=== PATIENT | male | born 1930 | race Caucasian/White ===

== ENCOUNTER 2016-09-10 06:59 | Inpatient (IN) | payer MEDICARE, OTHER ==
[~2016-09-10] VITALS: Ht 195.6 cm; Wt 106.2 kg
[2016-09-10] MEDS ORDERED: SODIUM CHLORIDE 0.9% 1,000 ML IV ONE (07:25)
[2016-09-10 07:29] VITALS: BP 121/74
[2016-09-10] MEDS ORDERED: CELE200C PO (07:43)
[2016-09-10] MEDS ORDERED: ISOS30TA8 PO (07:43)
[2016-09-10] MEDS ORDERED: LOSA25TA5 PO (07:43)
[2016-09-10] MEDS ORDERED: HYDR12.58 PO (07:43)
[2016-09-10] MEDS ORDERED: METO25TA35 PO (07:43)
[2016-09-10] MEDS ORDERED: LEVO88TA4 PO (07:43)
[2016-09-10] MEDS ORDERED: INDO25CA PO (07:43)
[2016-09-10 08:02] LABS: ASPARTATE AMINO TRANSFERASE 21 U/L (15-37); BLOOD UREA NITROGEN 35 mg/dL (7-18)
[2016-09-10] MEDS ORDERED: FENTANYL PF 100 MCG/2ML ONE ×2 (09:01→16:08)
[2016-09-10] MEDS ORDERED: BIVALIRUDIN 250 MG ONE ×2 (09:01→16:08)
[2016-09-10] MEDS ORDERED: TICAGRELOR 90 MG TABLET ONE ×2 (09:01→16:09)
[2016-09-10] MEDS ORDERED: LIDOCAINE 2%, 20ML ONE ×2 (09:01→16:08)
[2016-09-10] MEDS ORDERED: MIDAZOLAM 1 MG/ML, 5ML ONE ×2 (09:01→16:08)
[2016-09-10] MEDS ORDERED: HEPARIN 1,000 UNITS/ML, 10ML ONE ×2 (09:01→16:38)
[2016-09-10] MEDS ORDERED: VERAPAMIL 2.5 MG/ML, 2ML ONE ×2 (09:01→16:08)
[2016-09-10] MEDS: SODIUM CHLORIDE 0.9% 1,000 ML IV SCH ×2 (10:32→21:18)
[2016-09-10] MEDS ORDERED: HEPARIN 25,000 UNITS in DEXTROSE 10% 500 ML IV PRN (18:33)
[2016-09-10] MEDS ORDERED: HEPARIN 25,000 UNITS in DEXTROSE 20% 500 ML IV PRN (18:33)
[2016-09-10] MEDS ORDERED: SODIUM CHLORIDE 0.45% IV PRN (18:33)
[2016-09-10] MEDS ORDERED: DEXTROSE 30% IV PRN (18:33)
[2016-09-10] MEDS ORDERED: HEPARIN IV PRN ×4 (18:33→19:38)
[2016-09-10] MEDS ORDERED: SODIUM CHLORIDE 0.9% 500 ML IV PRN (18:33)
[2016-09-10 19:31] LABS: BLOOD UREA NITROGEN 29 mg/dL (7-18)
[2016-09-10] MEDS ORDERED: DEXTROSE 20% IV PRN ×2 (19:35→19:38)
[2016-09-10 19:39] LABS: IS PT STATUS REG ER OR PRE ER? NO
[2016-09-10] MEDS ORDERED: LABETALOL 5MG/ML, 20ML ONE (19:56)
[2016-09-10] MEDS ORDERED: METOPROLOL TARTRATE 25 MG TABLET PO ONE (20:00)
[2016-09-10] MEDS ORDERED: LABETALOL 5MG/ML, 20ML IVPush PRN (20:00)
[2016-09-10] MEDS: INDOMETHACIN 25 MG CAPSULE PO SCH (21:00)
[2016-09-10] MEDS: LOSARTAN 25MG TABLET PO SCH (21:16)
[2016-09-10] MEDS: LEVOTHYROXINE 88 MCG TABLET PO SCH (21:16)
[2016-09-10] MEDS: HYDROCHLOROTHIAZIDE 12.5 MG CAPSULE PO SCH (21:17)
[2016-09-10] MEDS: ISOSORBIDE MONONITRATE ER 30 MG TABLET PO SCH (21:17)
[2016-09-10] MEDS ORDERED: MORPHINE SULFATE 4 MG/ML, 1ML ONE (22:47)
[2016-09-10] MEDS ORDERED: MORPHINE SULFATE 4 MG/ML, 1ML IVPush PRN (23:00)
[2016-09-11 00:58] VITALS: BP 197/119
[2016-09-11] MEDS: SODIUM CHLORIDE 0.9% 1,000 ML IV SCH ×2 (03:26→10:32)
[2016-09-11 04:18] VITALS: BP 154/76
[2016-09-11 04:29] LABS: BLOOD UREA NITROGEN 31 mg/dL (7-18)
[2016-09-11 04:33] LABS: IS PT STATUS REG ER OR PRE ER? NO
[2016-09-11] MEDS: METOPROLOL TARTRATE 25 MG TABLET PO SCH ×2 (05:40→18:06)
[2016-09-11] MEDS: LEVOTHYROXINE 88 MCG TABLET PO SCH (05:41)
[2016-09-11] MEDS ORDERED: LEVOTHYROXINE 88 MCG TABLET PO SCH (06:00)
[2016-09-11] MEDS ORDERED: ISOSORBIDE MONONITRATE ER 30 MG TABLET PO SCH (09:00)
[2016-09-11] MEDS ORDERED: HYDROCHLOROTHIAZIDE 12.5 MG CAPSULE PO SCH (09:00)
[2016-09-11] MEDS: SODIUM CHLORIDE FLUSH 10ML SYR IVF SCH ×2 (09:00→21:20)
[2016-09-11] MEDS ORDERED: LOSARTAN 25MG TABLET PO SCH (09:00)
[2016-09-11] MEDS: LOSARTAN 25MG TABLET PO SCH (09:01)
[2016-09-11] MEDS: HYDROCHLOROTHIAZIDE 12.5 MG CAPSULE PO SCH (09:01)
[2016-09-11] MEDS: ISOSORBIDE MONONITRATE ER 30 MG TABLET PO SCH (09:01)
[2016-09-11] MEDS: INDOMETHACIN 25 MG CAPSULE PO SCH ×3 (09:01→21:19)
[2016-09-11] MEDS ORDERED: FUROSEMIDE 40 MG/4 ML IV ONE (10:30)
[2016-09-11] MEDS: TICAGRELOR 90 MG TABLET PO SCH ×2 (11:25→21:19)
[2016-09-11] MEDS: FAMOTIDINE 20 MG TABLET PO SCH (12:32)
[2016-09-11] MEDS: ATORVASTATIN 80 MG TABLET PO SCH (21:19)
[2016-09-12 04:00] VITALS: BP 128/68
[2016-09-12 04:35] LABS: BLOOD UREA NITROGEN 38 mg/dL (7-18)
[2016-09-12 04:39] LABS: ASPARTATE AMINO TRANSFERASE 21 U/L (15-37)
[2016-09-12 04:45] LABS: IS PT STATUS REG ER OR PRE ER? NO
[2016-09-12] MEDS: LEVOTHYROXINE 88 MCG TABLET PO SCH (05:23)
[2016-09-12] MEDS: ASPIRIN 81 MG TABLET CHEW PO SCH (05:23)
[2016-09-12] MEDS: METOPROLOL TARTRATE 25 MG TABLET PO SCH ×2 (05:27→18:21)
[2016-09-12] MEDS: TICAGRELOR 90 MG TABLET PO SCH ×2 (08:28→20:11)
[2016-09-12] MEDS: LOSARTAN 25MG TABLET PO SCH (08:29)
[2016-09-12] MEDS: ISOSORBIDE MONONITRATE ER 30 MG TABLET PO SCH (08:30)
[2016-09-12] MEDS: INDOMETHACIN 25 MG CAPSULE PO SCH (08:31)
[2016-09-12] MEDS: HYDROCHLOROTHIAZIDE 12.5 MG CAPSULE PO SCH (08:36)
[2016-09-12] MEDS: SODIUM CHLORIDE FLUSH 10ML SYR IVF SCH ×2 (08:37→20:11)
[2016-09-12] MEDS ORDERED: FUROSEMIDE 40 MG/4 ML IV ONE (10:30)
[2016-09-12] MEDS ORDERED: DIPHENOXYLATE/ATROPINE TABLET PO PRN (11:00)
[2016-09-12 15:57] VITALS: BP 119/64
[2016-09-12 19:01] VITALS: BP 108/59
[2016-09-12] MEDS: FAMOTIDINE 20 MG TABLET PO SCH (20:11)
[2016-09-12] MEDS: ATORVASTATIN 80 MG TABLET PO SCH (20:11)
[2016-09-13 02:00] VITALS: BP 149/93
[2016-09-13 05:38] LABS: BLOOD UREA NITROGEN 38 mg/dL (7-18)
[2016-09-13 05:43] LABS: IS PT STATUS REG ER OR PRE ER? NO
[2016-09-13] MEDS: METOPROLOL TARTRATE 25 MG TABLET PO SCH (05:47)
[2016-09-13] MEDS: LEVOTHYROXINE 88 MCG TABLET PO SCH (05:47)
[2016-09-13] MEDS: ASPIRIN 81 MG TABLET CHEW PO SCH (05:47)
[2016-09-13 07:34] VITALS: BP 110/65
[2016-09-13] MEDS: SODIUM CHLORIDE FLUSH 10ML SYR IVF SCH (09:09)
[2016-09-13] MEDS: LOSARTAN 25MG TABLET PO SCH (09:09)
[2016-09-13] MEDS: TICAGRELOR 90 MG TABLET PO SCH (09:09)
[2016-09-13] MEDS: ISOSORBIDE MONONITRATE ER 30 MG TABLET PO SCH (09:09)
[2016-09-13] MEDS ORDERED: LOSA25TA2 PO (10:53)
[2016-09-13] MEDS ORDERED: METO25TA35 PO (10:53)
[2016-09-13] MEDS ORDERED: ASPI-515 PO (10:53)
[2016-09-13] MEDS ORDERED: TICA90TA PO (10:53)
[2016-09-13] MEDS ORDERED: ATOR80TA75 PO (10:53)
[2016-09-13 12:47] VITALS: BP 122/67
== END 2016-09-13 16:00 | disposition home or self-care (01) | DRG 215 ==
LOC: CACL 06:59 → CCU 18:33 → 5SO 09-12 14:41
PROVIDERS: ADMIT Internal Medicine Cardiovascular Disease; ATTEND Internal Medicine Cardiovascular Disease
PROC: 4A023N7 Measurement of Cardiac Sampling and Pressure, Left Heart, Percutaneous Approach (ICD-10-PCS; principal; 2016-09-10)
PROC: 02HA3RZ Insertion of Short-term External Heart Assist System into Heart, Percutaneous Approach (ICD-10-PCS; 2016-09-10)
PROC: 5A0221D Assistance with Cardiac Output using Impeller Pump, Continuous (ICD-10-PCS; 2016-09-10)
PROC: 027135Z Dilation of Coronary Artery, Two Arteries with Two Drug-eluting Intraluminal Devices, Percutaneous Approach (ICD-10-PCS; 2016-09-10)
PROC: 02PA3RZ Removal of Short-term External Heart Assist System from Heart, Percutaneous Approach (ICD-10-PCS; 2016-09-10)
PROC: B2111ZZ Fluoroscopy of Multiple Coronary Arteries using Low Osmolar Contrast (ICD-10-PCS; 2016-09-10)
PROC: B2151ZZ Fluoroscopy of Left Heart using Low Osmolar Contrast (ICD-10-PCS; 2016-09-10)
DX: I25.110 Atherosclerotic heart disease of native coronary artery with unstable angina pectoris (principal); I50.33 Acute on chronic diastolic (congestive) heart failure; I13.0 Hypertensive heart and chronic kidney disease with heart failure and stage 1 through stage 4 chronic kidney disease, or unspecified chronic kidney disease; D64.9 Anemia, unspecified; E03.9 Hypothyroidism, unspecified; E78.00 Pure hypercholesterolemia, unspecified; E78.5 Hyperlipidemia, unspecified; E87.5 Hyperkalemia; G62.9 Polyneuropathy, unspecified; I05.0 Rheumatic mitral stenosis; I25.82 Chronic total occlusion of coronary artery; M10.9 Gout, unspecified; N18.9 Chronic kidney disease, unspecified; R54 Age-related physical debility; Z91.81 History of falling
CPT/HCPCS: 33990; 36415; 80048; 80053; 82805; 83735; 83880; 84484; 85014; 85018; 85025; 85347; 87081; 92920; 93005; 93306; 93458; 93880; 93979; 99156; 99157; C1760; C1769; C1894; C9600; C9601; J0583; J1644; J1940; J2250; J3010; J3490; 92928; C1725; C1874; C1887; J7030; Q9967

== ENCOUNTER → 2019-05-10 | Outpatient (CLI) | payer MEDICARE ==
[~2019-05-10] MED LIST: ASPI-515 PO; ATOR-2 PO; CELE200C PO; HYDROCHLOROTH12.5 MG PO; INDO25CA22 PO; ISOS30TA8 PO; LEVO88TA4 PO; LOSA25TA2 PO; LOSA25TA25 PO; METO25TA35 PO; TICA90TA PO
== END | disposition home or self-care (01) ==
LOC: RAD 15:03
PROVIDERS: ATTEND Family Medicine
DX: R05 Cough (principal); M79.662 Pain in left lower leg; R60.0 Localized edema; J98.11 Atelectasis
CPT/HCPCS: 71046

== ENCOUNTER → 2019-05-22 | Outpatient (CLI) | payer MEDICARE | END | disposition home or self-care (01) | LOC: CFH 06:48 | PROVIDERS: ATTEND Physician Assistant Medical | DX: I08.8 Other rheumatic multiple valve diseases (principal); I10 Essential (primary) hypertension; I25.119 Atherosclerotic heart disease of native coronary artery with unspecified angina pectoris | CPT/HCPCS: 93306 ==

== ENCOUNTER 2019-07-19 09:41 | Inpatient (IN) | payer MEDICARE ==
[~2019-07-19] VITALS: Ht 198.1 cm; Wt 100.0 kg
[2019-07-19] VITALS (7 sets, daily range): BP systolic 96–128; BP diastolic 56–69
[2019-07-19] MEDS ORDERED: PHENYLEPHRINE NASAL 1%, 15ML SPRAY ONE (09:55)
[2019-07-19] MEDS ORDERED: SODIUM CHLORIDE 0.9% 1,000ML IVBOLUS ONE (10:30)
[2019-07-19 10:34] LABS: BASOPHILS # (AUTO) 0.02 x10^3/uL (0-0.1); BASOPHILS % (AUTO) 0 % (0-1); EOSINOPHILS # (AUTO) 0.01 x10^3/uL (0-0.4); EOSINOPHILS % (AUTO) 0 % (1-7); LYMPHOCYTES # (AUTO) 0.82 x10^3/uL (1-3.4); LYMPHOCYTES % (AUTO) 10 % (22-44); MD NO; MEAN CORPUSCULAR HEMOGLOBIN 32.5 pg (27.5-34.5); MEAN CORPUSCULAR HGB CONC 32.2 g/dL (33.2-36.2); MEAN CORPUSCULAR VOLUME 101.2 fL (81-97); MEAN PLATELET VOLUME 8.2 fL (7.4-10.4); MONOCYTES # (AUTO) 0.38 x10^3/uL (0.2-0.8); MONOCYTES % (AUTO) 4 % (2-9); NEUTROPHILS # (AUTO) 7.35 x10^3/uL (1.8-6.8); NEUTROPHILS % (AUTO) 86 % (42-75); PLATELET COUNT 172 x10^3/uL (130-400); RED BLOOD COUNT 2.82 x10^6/uL (4.38-5.82); RED CELL DISTRIBUTION WIDTH 15.4 % (9.4-14.8)
--- NOTE | 2019-07-19 10:36 | NUR ---
Patient into room with [facility]. Recieved report that patient has had a nose bleed since 0200. patient transferred into bed, midlevel provider to bedside for assessment. Patient alert, oriented, answers questions but a poor historian and unable to recall home medications. Electrocardiogram completed, patient hypotensive (see triage flowsheet) and 500mL bolus administered. Provider to bedside, packing placed in right nostril with administration of vasoconstricting agent. Patient now resting comfortably, blood pressure improved. Awaiting lab results and formation of clot.
[2019-07-19 10:46] LABS: INTERNATIONAL NORMALIZED RATIO 1.1 (0.93-1.1); PROTHROMBIN TIME 11.7 Seconds (9.6-11.5)
[2019-07-19 10:48] LABS: ALBUMIN 2.7 g/dL (3.4-5.0); ANION GAP 9 mmol/L (5-15); CALCIUM 7.9 mg/dL (8.5-10.1); CHLORIDE 117 mmol/L (98-107); CREATININE 1.69 mg/dL (0.7-1.3)
--- NOTE | 2019-07-19 11:03 | NUR ---
Patient status stabilized, provider to bedside, received instructons patient to be admitted. Awaiting placement.
[2019-07-19] MEDS ORDERED: SODIUM CHLORIDE 0.9% 1,000 ML IV ONE (11:30)
[2019-07-19] MEDS ORDERED: SODIUM CHLORIDE 0.9%, 500ML IVBOLUS ONE (11:30)
[2019-07-19] MEDS ORDERED: ONDANSETRON ODT 4 MG PO PRN (11:30)
[2019-07-19] MEDS ORDERED: ACETAMINOPHEN 325 MG TABLET PO PRN (11:30)
[2019-07-19] MEDS ORDERED: CEPHALEXIN 500 MG CAPSULE PO ONE (11:30)
[2019-07-19] MEDS ORDERED: ONDANSETRON 2MG/ML, 2ML IVPush PRN (11:30)
[2019-07-19] MEDS: CEPHALEXIN 500 MG CAPSULE PO SCH ×2 (11:30→23:05)
[2019-07-19] MEDS ORDERED: ONDANSETRON 2MG/ML, 2ML ONE (11:35)
--- NOTE | 2019-07-19 11:56 | NUR ---
Patient assessed by hospitalist, orders placed for admission. Awaiting bed placement
[2019-07-19] MEDS: SODIUM CHLORIDE 0.9% 1,000 ML IV SCH (14:12)
[2019-07-19] MEDS: METOPROLOL TARTRATE 25 MG TAB PO SCH (20:14)
[2019-07-19] MEDS: ATORVASTATIN 80 MG TABLET PO SCH (20:14)
[2019-07-20 00:38] VITALS: BP 102/63
[2019-07-20] MEDS: SODIUM CHLORIDE 0.9% 1,000 ML IV SCH (05:19)
[2019-07-20 05:22] LABS: BASOPHILS # (AUTO) 0.02 x10^3/uL (0-0.1); BASOPHILS % (AUTO) 0 % (0-1); EOSINOPHILS # (AUTO) 0.08 x10^3/uL (0-0.4); EOSINOPHILS % (AUTO) 1 % (1-7); LYMPHOCYTES # (AUTO) 1.56 x10^3/uL (1-3.4); LYMPHOCYTES % (AUTO) 21 % (22-44); MD NO; MEAN CORPUSCULAR HEMOGLOBIN 32.9 pg (27.5-34.5); MEAN CORPUSCULAR HGB CONC 33.2 g/dL (33.2-36.2); MEAN CORPUSCULAR VOLUME 99.3 fL (81-97); MONOCYTES # (AUTO) 0.86 x10^3/uL (0.2-0.8); MONOCYTES % (AUTO) 12 % (2-9); NEUTROPHILS # (AUTO) 4.83 x10^3/uL (1.8-6.8); NEUTROPHILS % (AUTO) 66 % (42-75); PLATELET COUNT 164 x10^3/uL (130-400); RED BLOOD COUNT 2.84 x10^6/uL (4.38-5.82); RED CELL DISTRIBUTION WIDTH 15.8 % (9.4-14.8)
[2019-07-20 05:26] LABS: ANION GAP 8 mmol/L (5-15); CALCIUM 8.7 mg/dL (8.5-10.1); CHLORIDE 115 mmol/L (98-107)
[2019-07-20 05:27] LABS: % IRON SATURATION 10 % (20-55); IRON LEVEL 36 mcg/dL (65-175); TOTAL IRON BINDING CAPACITY 371 mcg/dL (250-450)
[2019-07-20 07:26] VITALS: BP 108/66
[2019-07-20] MEDS: ISOSORBIDE MONONITRATE ER 30 MG TABLET PO SCH (09:09)
[2019-07-20] MEDS: METOPROLOL TARTRATE 25 MG TAB PO SCH ×2 (09:09→20:10)
[2019-07-20] MEDS: CEPHALEXIN 500 MG CAPSULE PO SCH ×2 (11:26→23:59)
[2019-07-20 12:57] VITALS: BP 98/62
[2019-07-20 15:05] VITALS: BP_SYST 103; BP_SYST 107; BP_SYST 89; BP_DIAS 68; BP_DIAS 71
[2019-07-20 18:00] VITALS: BP 113/72
[2019-07-20 19:26] VITALS: BP_SYST 109; BP_SYST 113; BP_SYST 118; BP_DIAS 65; BP_DIAS 69; BP_DIAS 71
[2019-07-20] MEDS: ATORVASTATIN 80 MG TABLET PO SCH (20:10)
[2019-07-21 00:22] VITALS: BP 107/69
[2019-07-21 04:52] LABS: ANION GAP 6 mmol/L (5-15); CHLORIDE 117 mmol/L (98-107); CREATININE 1.21 mg/dL (0.7-1.3)
[2019-07-21 04:55] LABS: TRANSFERRIN 248 mg/dL (200-360)
[2019-07-21 06:22] LABS: MEAN CORPUSCULAR HEMOGLOBIN 32.8 pg (27.5-34.5); MEAN CORPUSCULAR HGB CONC 32.9 g/dL (33.2-36.2); MEAN CORPUSCULAR VOLUME 99.6 fL (81-97); MEAN PLATELET VOLUME 9.7 fL (7.4-10.4); PLATELET COUNT 135 x10^3/uL (130-400); RED CELL DISTRIBUTION WIDTH 15.8 % (9.4-14.8)
[2019-07-21 06:26] LABS: MD YES
[2019-07-21 06:28] LABS: BAND#(MANUAL) 0.19 x10^3/uL; BANDS%(MANUAL) 2 % (0-7); BASOS#(MANUAL) 0.19 x10^3/uL (0-0.1); BASOS% (MANUAL) 2 % (0-1); EOS% (MANUAL) 1 % (1-7); LYMPH#(MANUAL) 1.54 x10^3/uL (1-3.4); LYMPHS% (MANUAL) 16 % (22-44); METAMYELOCYTES% (MANUAL) 1 % (0-1); MONOS#(MANUAL) 0.67 x10^3/uL (0.3-2.7); MONOS% (MANUAL) 7 % (2-9); SEG#(MANUAL) 6.82 x10^3/uL (1.8-6.8); SEGS% (MANUAL) 71 % (42-75)
[2019-07-21 06:30] LABS: <PLATELET ESTIMATE> ADEQUATE; <PLT MORPHOLOGY> NORMAL PLT MORPH; ANISOCYTOSIS 1+; POLYCHROMASIA 1+
[2019-07-21 08:11] VITALS: BP 109/72
[2019-07-21] MEDS: METOPROLOL TARTRATE 25 MG TAB PO SCH (08:29)
[2019-07-21] MEDS: ISOSORBIDE MONONITRATE ER 30 MG TABLET PO SCH (08:29)
[2019-07-21] MEDS ORDERED: FERROUS SULFATE 325 MG TABLET PO SCH (09:00)
[2019-07-21] MEDS ORDERED: LOSARTAN 25MG TABLET PO SCH (09:00)
[2019-07-21] MEDS ORDERED: LEVOTHYROXINE 88 MCG TABLET PO SCH (09:00)
[2019-07-21] MEDS ORDERED: CEPH-376 PO (09:59)
[2019-07-21] MEDS ORDERED: FERR-51 PO (09:59)
[2019-07-21] MEDS ORDERED: SODIUM CHLORIDE 0.9% 1,000 ML IV SCH (11:13)
[2019-07-21] MEDS: CEPHALEXIN 500 MG CAPSULE PO SCH (11:43)
[2019-07-21 12:18] VITALS: BP 101/61
[2019-07-31] MEDS ORDERED: COLC0.6T37 PO (17:28)
[2019-07-31] MEDS ORDERED: FURO20TA3 PO (17:30)
[2019-07-31] MEDS ORDERED: LISI5TAB7 PO (17:31)
[2019-07-31] MEDS ORDERED: AMLO-150 PO (17:32)
== END 2019-07-21 13:31 | disposition home or self-care (01) | DRG 151 ==
LOC: ED 10:23 → EDIP 11:13 → 4WST 13:16
PROVIDERS: ADMIT Internal Medicine; ATTEND Internal Medicine
PROC: 2Y41X5Z Packing of Nasal Region using Packing Material (ICD-10-PCS; principal; 2019-07-19)
DX: R04.0 Epistaxis (principal); E87.0 Hyperosmolality and hypernatremia; I12.9 Hypertensive chronic kidney disease with stage 1 through stage 4 chronic kidney disease, or unspecified chronic kidney disease; D50.9 Iron deficiency anemia, unspecified; E03.9 Hypothyroidism, unspecified; E78.5 Hyperlipidemia, unspecified; E87.5 Hyperkalemia; I25.10 Atherosclerotic heart disease of native coronary artery without angina pectoris; I48.91 Unspecified atrial fibrillation; N18.9 Chronic kidney disease, unspecified; R55 Syncope and collapse; Z60.2 Problems related to living alone; Z79.02 Long term (current) use of antithrombotics/antiplatelets; I25.2 Old myocardial infarction
CPT/HCPCS: 36415; 80048; 82040; 82728; 83540; 83550; 84466; 85018; 85025; 85610; 85730; 86850; 86900; 93005; 99285; G0378; J2405; J7030

== ENCOUNTER 2019-07-23 09:27 | Emergency (ER) | payer MEDICARE ==
[~2019-07-23] VITALS: Ht 195.6 cm; Wt 100.0 kg
[~2019-07-23 09:27] MED LIST changes: +CEPH-376 PO; +FERR-51 PO
[2019-07-23 09:28] VITALS: BP 99/50
--- NOTE | 2019-07-23 11:00 | NUR ---
TASK RN:PT SITTING ON CHAIR. PT'S AOX4. RESPS EVEN AND UNLABORED.
--- NOTE | 2019-07-23 11:42 | NUR ---
Patient given discharge instructions and they have confirmed that they understand the instructions. Patient to DC desk via WC per pt request.
== END 2019-07-23 11:44 | disposition home or self-care (01) ==
LOC: ED 10:06
DX: R04.0 Epistaxis (principal)
CPT/HCPCS: 99281